=== PATIENT | female | born 1950 | race Caucasian/White ===

== ENCOUNTER 2019-07-08 09:50 | Emergency (ER) | payer MEDICARE ==
[2019-07-08 10:05] VITALS: BP 140/75
--- NOTE | 2019-07-08 10:42 | UC ---
Abdominal Pain Female HPI - HPI Summary HPI Summary: The patient is a 68-year-old female who presents here with left sided abdominal pain 3 days. She has had some mild constipation. She has felt flushed and like she may have a low-grade fever. The symptoms are her typical symptoms she gets when she develops diverticulitis. She states she has been treated for diverticulitis to at least 10 times in the past. She states that she is only required hospitalization once for diverticulitis. - History of Current Complaint Chief Complaint: UCGI Stated Complaint: ABDOMINAL PAIN Time Seen by Provider: 07/08/19 10:34 Hx Obtained From: Patient Onset/Duration: Gradual Onset, Lasting Days Timing: Constant Severity Initially: Mild Severity Currently: Mild Pain Intensity: 3 Pain Scale Used: 0-10 Numeric Location: Discrete At: LLQ Radiates: No Character: Aching, Cramping Aggravating Factor(s): Nothing Alleviating Factor(s): Nothing Associated Signs and Symptoms: Positive: Fever - katie, Constipation Allergies/Adverse Reactions: Allergies Allergy/AdvReac Type Severity Reaction Status Date / Time No Known Allergies Allergy Verified 07/08/19 10:05 Home Medications: Home Medications Alendronate Sodium 20 tab PO WEEKLY 07/08/19 [History Confirmed 07/08/19] Magnesium Hydroxide [Milk of Magnesia] 1 dose PO ONCE PRN 07/08/19 [History Confirmed 07/08/19] PMH/Surg Hx/FS Hx/Imm Hx Previously Healthy: Yes GI/ History: Diverticulitis Neurological History: Other Other Neurological History: polio - Surgical History Surgical History: Yes Surgery Procedure, Year, and Place: dislocated right hip,left knee,tendon transplant right foot,[place],right knee, left shoulder, - Social History Alcohol Use: None Substance Use Type: None Smoking Status (MU): Never Smoked Tobacco Review of Systems All Other Systems Reviewed And Are Negative: Yes Constitutional: Positive: Fever - katie Eyes: Positive: Negative ENT: Positive: Negative Respiratory: Positive: Negative Cardiovascular: Positive: Negative Gastrointestinal: Positive: Abdominal Pain, Other - constiopation Motor: Positive: Other - no changes baseline Neurovascular: Positive: Other - no changes baseling Musculoskeletal: Positive: Negative Neurological: Positive: Negative Psychological: Positive: Negative Physical Exam Triage Information Reviewed: Yes Appearance: Well-Appearing, No Pain Distress, Well-Nourished Vital Signs: Initial Vital Signs Temp 98.7 F 07/08/19 10:01 Pulse 91 07/08/19 10:01 Resp 18 07/08/19 10:01 BP 140/75 07/08/19 10:01 Pulse Ox 97 07/08/19 10:01 Vital Signs Reviewed: Yes Eyes: Positive: Conjunctiva Clear ENT: Positive: Hearing grossly normal, Uvula midline. Negative: Nasal congestion, Nasal drainage, Trismus, Dental tenderness Neck: Positive: Supple, Nontender, No Lymphadenopathy Respiratory: Positive: Lungs clear, Normal breath sounds, No respiratory distress, No accessory muscle use Cardiovascular: Positive: RRR, No Murmur Musculoskeletal: Positive: Other: - bilateral braces Neurological: Positive: Alert, Other: - bilater braces for foot drop Skin Exam: Normal Abd Pain Female Course/Dx - Differential Dx/Diagnosis Provider Diagnosis: Diverticulitis Discharge ED - Sign-Out/Discharge Documenting (check all that apply): Patient Departure All imaging exams completed and their final reports reviewed: No Studies - Discharge Plan Condition: Stable Disposition: HOME Prescriptions: metroNIDAZOLE [Flagyl 500 MG TAB] 500 mg PO TID #21 tab Sulfamethox/Trimethoprim DS* [Bactrim DS 800/160 TAB*] 1 tab PO BID #14 tab Patient Education Materials: Diverticulitis (ED) Referrals: Ihsan Inman MD [Primary Care Provider] - 4 Days (recheck in 4-5 days) Additional Instructions: I suggest you go to the ER for Increased pain temp >100.4 vomiting or if not improved in 2 days - Billing Disposition and Condition Condition: STABLE Disposition: Home
== END 2019-07-08 10:55 | disposition home or self-care (01) ==
LOC: UCEAST 09:50
DX: K57.92 Diverticulitis of intestine, part unspecified, without perforation or abscess without bleeding (principal); K59.00 Constipation, unspecified; M21.372 Foot drop, left foot; M21.371 Foot drop, right foot
CPT/HCPCS: 99212; G0463